=== PATIENT | male | born 1935 | race Caucasian/White ===

== ENCOUNTER 2019-10-06 04:56 | Inpatient (IN) | payer OTHER, MEDICARE ==
[~2019-10-06] VITALS: Ht 185.4 cm; Wt 64.0 kg
--- NOTE | 2019-10-06 05:02 | NUR ---
Patient to ER bed 1 to gown for evaluation. Side rails up.
[2019-10-06 05:03] VITALS: BP_SYST 126
--- NOTE | 2019-10-06 05:04 | NUR ---
ER at bedside examining patient.
--- NOTE | 2019-10-06 05:05 | NUR ---
Pt came in ALS for altered mental status. Per EMS, called 911 for help to get her off the toilet. Pt was on toilet for "7 hours." When EMS got there, they noted he seemed a little altered and called na[facility] [address]. reports that he has seemed a little altered for the past week and that he hasnt really drank/ate much for 7 days. Blood sugar on scene was 225. Patient is A&O x 1. However, pt is slow to respond. No other complaints/injuries noted. Will cont. to monitor.
--- NOTE | 2019-10-06 05:13 | NUR ---
PT went to CT scan via [employer]. Tolerated well. Will cont. to monitor.
--- NOTE | 2019-10-06 05:51 | NUR ---
xray at bedside
--- NOTE | 2019-10-06 05:58 | NUR ---
Bear hugger warming blanket applied on pt. Tolerated well. WIll cont. to monitor.
--- NOTE | 2019-10-06 06:15 | NUR ---
Pt bedside. Pt states that she was in a hurry and went to [facility] by accident and tripped/fell on her way in. Pt family has laceration to chin. She is waiting bedside.
--- NOTE | 2019-10-06 06:27 | NUR ---
Blood for labwork drawn from R forearm. Lactic Acid, Cultures also drawn. Patient tolerated Well.
[2019-10-06 06:35] LABS: BASOPHILS % (AUTO) 0.3 % (0.0-2.0); EOSINOPHILS % (AUTO) 0.1 % (0.0-4.0); HEMATOCRIT 36.3 % (36-54); HEMOGLOBIN 12.6 g/dL (14.0-18.0); LYMPHOCYTES # (AUTO) 0.5 K/uL (1.0-5.5); LYMPHOCYTES % (AUTO) 4.4 % (20.5-51.5); MEAN CORPUSCULAR HEMOGLOBIN 36 pg (27-31); MEAN CORPUSCULAR HGB CONC 35 % (32-36); MEAN CORPUSCULAR VOLUME 103 fL (79.0-98.0); MONOCYTES # (AUTO) 0.4 K/uL (0.0-1.0); MONOCYTES % (AUTO) 3.9 % (1.7-9.3); NEUTROPHILS # (AUTO) 10.2 K/uL (1.8-7.7); NEUTROPHILS % (AUTO) 91.3 % (40.0-70.0); PLATELET COUNT (AUTO) 208 K/uL (130-430); RED BLOOD CELL COUNT(AUTO) 3.51 MIL/uL (4.2-6.2); RED CELL DISTRIBUTION WIDTH 15.1 % (9.0-15.0); WHITE BLOOD COUNT (AUTO) 11.2 K/uL (4.8-10.8)
[2019-10-06 07:09] LABS: ANION GAP 12 (5-15); CALCIUM 10.5 mg/dL (8.4-11.0); CHLORIDE 104 mmol/L (98-107); CREATININE 1.21 mg/dL (0.55-1.30); GLUCOSE 213 mg/dL (70-99); POTASSIUM 3.9 mmol/L (3.5-5.1); SODIUM SERUM 137 mmol/L (136-145); UREA NITROGEN, BLOOD 36 mg/dL (8-21)
[2019-10-06 07:15] LABS: ALANINE AMINOTRANSFERASE 29 U/L (12-78); ALBUMIN 2.5 g/dL (3.4-4.8); ASPARTATE AMINOTRANSFERASE 51 U/L (10-37); TOTAL BILIRUBIN 2.3 mg/dL (0.0-1.0)
--- NOTE | 2019-10-06 07:15 | NUR ---
Report from Servando CONNORS
[2019-10-06 07:16] LABS: INR 1.4 (0.80-1.20); PROTHROMBIN TIME 13.5 SECS (9.5-12.5)
[2019-10-06 07:19] LABS: ACETAMINOPHEN < 1 ug/mL (1-30); ALCOHOL, BLOOD < 3 mg/dL (<10)
--- NOTE | 2019-10-06 07:50 | NUR ---
# 16 FR In and Out catheter with use of sterile technique. Immediate return of 60 ml yellow urine noted. Urine sample collected and sent to lab. Pt tolerated procedure . Patient unable to toilet self.
[2019-10-06] MEDS ORDERED: D5/0.45 NS 1,000 ML IV ONE (08:45)
--- NOTE | 2019-10-06 08:50 | NUR ---
Repeay EKG complete
[2019-10-06 09:04] LABS: BARBITURATE, URINE NEGATIVE (NEG <=200); BENZODIAZEPINE, URINE NEGATIVE (NEG <=150); CANNABINOID, URINE NEGATIVE (NEG <=50); COCAINE, URINE NEGATIVE (NEG <=150); METHAMPHETAMINES SCREEN,URINE NEGATIVE (NEG <=500); OPIATE, URINE NEGATIVE (NEG <=100); PHENCYCLIDINE SCREEN,URINE NEGATIVE (NEG <=25); UR TRICYCLIC ANTIDEPRESSANTS NEGATIVE (NEG <=300); URINE AMPHETAMINE NEGATIVE (NEG <=500); URINE METHADONE NEGATIVE (NEG <=200); URINE OXYCODONE SCREEN NEGATIVE (NEG <=100); URINE PROPOXYPHENE SCREEN NEGATIVE (NEG <=300)
--- NOTE | 2019-10-06 09:22 | NUR ---
Patient will be admitted to care of Dr. Peña . Admitted to med surg unit. Will go to room 104B. Belongings list completed. Complete and up to date summary report printed. SBAR report to be given at bedside with opportunity for questions.
--- NOTE | 2019-10-06 09:35 | NUR ---
ADMISSION NOTE Received patient from ER via gurney. Patient admitted with diagnosis of ALOC. Patient is awake, alert, oriented X 2. Patient oriented to hospital room, call light, toileting, pain management and safety-teach back done. Personal belongings checked and Belongings List documented. Call light within reach.
[2019-10-06 09:45] VITALS: BP_SYST 112
--- NOTE | 2019-10-06 09:52 | NUR ---
CONSULTATION PAGED/CALLED Reason for Consultation: [] ALOC Person Who was Notified: [] MARIA DEL ROSARIO Consulting Physician: [] DR Billie ARMSTRONG Appliance Worker Specialty: [] NEURO Ordering Physician: [] DR Karla PHELPS
--- NOTE | 2019-10-06 10:05 | NUR ---
INITIAL NOTE: RECEIVED PATIENT FROM ER. PATIENT IS AWAKE AND ALERT x2. PATIENT IS CONFUSED. AT BEDSIDE. PATIENT DENIES ANY PAIN AT THE MOMENT. PATIENT IS TOLERATING OXYGEN AT ROOM AIR WITH NO SIGNS OF DISTRESS OR SHORTNESS OF BREATH NOTED. IV SITES ARE INTACT WITH NO SIGNS OF INFILTRATION. PATIENT IN STABLE CONDITION. SAFETY, FALL, AND ASPIRATION PRECAUTIONS ARE IN PLACE. BED LOCKED IN LOWEST POSITION WITH CALL LIGHT IN REACH. WILL CONTINUE TO MONITOR PATIENT FOR ANY CHANGES.
[2019-10-06 11:36] VITALS: BP_SYST 105
--- NOTE | 2019-10-06 12:10 | NUR ---
RN ROUNDS: PATIENT IS ASLEEP IN BED. NO SIGNS OF DISTRESS OR SHORTNESS OF BREATH NOTED. AT BEDSIDE. PATIENT IN STABLE CONDITION. WILL CONTINUE TO MONITOR PATIENT FOR ANY CHANGES.
[2019-10-06] MEDS ORDERED: ASCO500T20 PO (13:30)
[2019-10-06] MEDS ORDERED: RIFA550T5 PO (13:57)
[2019-10-06] MEDS ORDERED: FURO-150 PO (13:57)
[2019-10-06] MEDS ORDERED: MULT-1164 PO (13:57)
[2019-10-06] MEDS ORDERED: FER300L PO (13:57)
[2019-10-06] MEDS ORDERED: DAPA10TA PO (13:57)
[2019-10-06] MEDS ORDERED: INSU200I4 SQ (14:07)
--- NOTE | 2019-10-06 14:10 | NUR ---
RN ROUNDS: PATIENT IS AWAKE AND ALERT x2 LAYING DOWN IN BED. PATIENT DENIES ANY PAIN AT THE MOMENT. AT BEDSIDE. PATIENT IN STABLE CONDITION. WILL CONTINUE TO MONITOR PATIENT FOR ANY CHANGES.
[2019-10-06 15:20] VITALS: BP_SYST 99
--- NOTE | 2019-10-06 16:27 | NUR ---
RN ROUNDS: PATIENT IS ASLEEP IN BED. NO SIGNS OF DISTRESS OR SHORTNESS OF BREATH NOTED. PATIENT IS TOLERATING OXYGEN AT ROOM AIR. PATIENT IN STABLE CONDITION. WILL CONTINUE TO MONITOR PATIENT FOR ANY CHANGES.
[2019-10-06] MEDS ORDERED: D5W 1,000 ML IV PRN (18:04)
[2019-10-06] MEDS ORDERED: HYDROcodone/ACETAMIN 10-325 MG TAB PO PRN (18:15)
[2019-10-06] MEDS ORDERED: ONDANSETRON HCL 4 MG/2 ML VIAL IVP PRN (18:15)
[2019-10-06] MEDS ORDERED: GLUCOSE 15 GM GEL (in 37.5 GM TUBE) PO PRN (18:15)
[2019-10-06] MEDS ORDERED: LORazepam 2 MG/ML VIAL IVP PRN (18:15)
[2019-10-06] MEDS ORDERED: DEXTROSE 50% JECT 50 ML DISP.SYRIN IVP PRN (18:15)
[2019-10-06] MEDS ORDERED: ACETAMINOPHEN 325 MG TABLET PO PRN (18:15)
[2019-10-06] MEDS ORDERED: HYDROcodone/ACETAMIN 5-325 MG TAB (NORCO/ VICODIN) PO PRN (18:15)
--- NOTE | 2019-10-06 18:51 | NUR ---
CLOSING NOTES: PATIENT IS ASLEEP IN BED. PATIENT WAS CHANGED AND CLEANED. PATIENT IS TOLERATING OXYGEN AT ROOM AIR WITH NO SIGNS OF DISTRESS OR SHORTNESS OF BREATH NOTED. IV SITES ARE INTACT WITH NO SIGNS OF INFILTRATION AND RUNNING FLUIDS ORDERED. PATIENT IN STABLE CONDITION. SAFETY, FALL, AND ASPIRATION PRECAUTIONS REMAINED IN PLACE THROUGHOUT THE SHIFT. BED LOCKED IN LOWEST POSITION WITH CALL LIGHT IN REACH. WILL ENDORSE PATIENT CARE TO ONCOMING ROLL PANNER NURSE.
--- NOTE | 2019-10-06 20:00 | NUR ---
pt received in stable condition. pt a+o*4. pt bilat. STANDING ROCK. BSC w Assist vs Incont. bowel+bladder.
[2019-10-06] MEDS: ASCORBIC ACID 500 MG TABLET PO SCH (21:00)
[2019-10-06] MEDS: FUROSEMIDE 20 MG TABLET PO SCH (21:00)
[2019-10-06] MEDS ORDERED: NORMAL SALINE 5 ML DISP.SYRIN IVF SCH (22:00)
--- NOTE | 2019-10-06 22:00 | NUR ---
pt resting quietly in bed. pt has call light in reach. bed in low position. personal belongings w/i reach.
[2019-10-06] MEDS: NORMAL SALINE 5 ML DISP.SYRIN IVF SCH (22:35)
[2019-10-06] MEDS: D5/0.45 NS 1,000 ML IV SCH (22:38)
[2019-10-06] MEDS: INSULIN REGULAR, HUMAN 100 UNITS/ML, 10 ML VIAL (humuLIN R) SUBCUT PRN (22:46)
[2019-10-07] VITALS: BP_SYST 108
--- NOTE | 2019-10-07 00:04 | NUR ---
pt compliant w nursing care. pt remains in stable condition.
--- NOTE | 2019-10-07 02:00 | NUR ---
Pt condition stable. will cont. to monitor for changes in condition.
[2019-10-07 06:36] LABS: BASOPHILS % (AUTO) 0.3 % (0.0-2.0); EOSINOPHILS # (AUTO) 0.2 K/uL (0.0-0.4); EOSINOPHILS % (AUTO) 1.7 % (0.0-4.0); HEMATOCRIT 33.4 % (36-54); HEMOGLOBIN 11.8 g/dL (14.0-18.0); LYMPHOCYTES # (AUTO) 0.5 K/uL (1.0-5.5); LYMPHOCYTES % (AUTO) 5.6 % (20.5-51.5); MEAN CORPUSCULAR HEMOGLOBIN 36 pg (27-31); MEAN CORPUSCULAR HGB CONC 35 % (32-36); MEAN CORPUSCULAR VOLUME 102 fL (79.0-98.0); MONOCYTES # (AUTO) 0.6 K/uL (0.0-1.0); MONOCYTES % (AUTO) 7.2 % (1.7-9.3); NEUTROPHILS # (AUTO) 7.6 K/uL (1.8-7.7); NEUTROPHILS % (AUTO) 85.2 % (40.0-70.0); PLATELET COUNT (AUTO) 190 K/uL (130-430); RED BLOOD CELL COUNT(AUTO) 3.27 MIL/uL (4.2-6.2)
[2019-10-07] MEDS: NORMAL SALINE 5 ML DISP.SYRIN IVF SCH ×3 (06:49→21:13)
[2019-10-07 07:12] LABS: ALANINE AMINOTRANSFERASE 25 U/L (12-78); ALBUMIN 2.1 g/dL (3.4-4.8); ANION GAP 6 (5-15); ASPARTATE AMINOTRANSFERASE 42 U/L (10-37); CHLORIDE 102 mmol/L (98-107); CREATININE 1.14 mg/dL (0.55-1.30); GLUCOSE 275 mg/dL (70-99); POTASSIUM 3.7 mmol/L (3.5-5.1); SODIUM SERUM 132 mmol/L (136-145); UREA NITROGEN, BLOOD 36 mg/dL (8-21)
[2019-10-07] MEDS: INSULIN REGULAR, HUMAN 100 UNITS/ML, 10 ML VIAL (humuLIN R) SUBCUT PRN ×3 (07:19→17:49)
[2019-10-07] MEDS: D5/0.45 NS 1,000 ML IV SCH (07:20)
--- NOTE | 2019-10-07 07:55 | NUR ---
Opening Note Received bedside SBAR report from shift leader RN, patient in bed resting, respirations even and unlabored on room air, IV fluids infusing well, IV site clean, dry and intact, bed in low and locked position with bed alarm on, call light in reach
[2019-10-07 08:00] VITALS: BP_SYST 114
[2019-10-07 08:07] LABS: TOTAL BILIRUBIN 1.1 mg/dL (0.0-1.0)
[2019-10-07] MEDS: FUROSEMIDE 20 MG TABLET PO SCH ×3 (08:47→21:12)
[2019-10-07] MEDS: RIFAXIMIN 550 MG TABLET PO SCH (08:47)
[2019-10-07] MEDS: MULTIVITS,CA,MINERALS/IRON/FA 1 TABLET PO SCH (08:48)
[2019-10-07] MEDS: ASCORBIC ACID 500 MG TABLET PO SCH ×3 (08:48→21:11)
[2019-10-07] MEDS: FERROUS SULFATE 300 MG/5 ML UDC PO SCH (08:48)
[2019-10-07] MEDS ORDERED: NON-FORMULARY MEDICATION (Dapagliflozin Propanediol (Farxiga) 10 MG) PO SCH (09:00)
--- NOTE | 2019-10-07 09:30 | NUR ---
RN Rounds Patient in bed resting, IV sites clean, dry and intact, no acute distress noted
[2019-10-07 11:24] VITALS: BP_SYST 99
--- NOTE | 2019-10-07 11:30 | NUR ---
Spoke with Family Patients at bedside encouraging patient to eat lunch, no acute distress noted
--- NOTE | 2019-10-07 12:36 | NUR ---
Physician Rounds Dr. Abilio Peña at patients bedside examining patient
--- NOTE | 2019-10-07 14:17 | NUR ---
RN Rounds Patient in bed resting, respirations even and unlabored on 2L nasal canula, no acute distress noted, call light in reach Addendum: 10/07/19 at 1426 by Daniel Rios RN Disregard above note, wrong patient
--- NOTE | 2019-10-07 14:36 | NUR ---
RN Rounds Patient in bed resting, respirations even and unlabored on room air, patient denies pain at this time
[2019-10-07 15:34] VITALS: BP_SYST 114
[2019-10-07 15:36] VITALS: BP_SYST 114
--- NOTE | 2019-10-07 16:34 | NUR ---
Physical Therapy Patient up and walking with physical therapist and walker, patient able to ambulate several feet, tolerating well, physical therapist assisted patient back to bed, no acute distress noted
--- NOTE | 2019-10-07 18:10 | NUR ---
RN Rounds Patient in bed resting, respirations even and unlabored on room air, no acute distress noted at this time
--- NOTE | 2019-10-07 19:18 | NUR ---
Closing Note Bedside SBAR report given to police shift commander RN, patient in bed resting, respirations even and unlabored on room air, IV sites clean, dry and intact, bed in low and locked position with bed alarm on, care endorsed to police shift commander RN
--- NOTE | 2019-10-07 20:20 | NUR ---
Start of Shift Note: Report received from Day RN. Pt in bed, appears asleep. IVF infusing well@100ml/hr. Pt respirations regular, even, unlabored. Bed w SR up x2. Bed alarm on, wheels locked.
--- NOTE | 2019-10-07 22:00 | NUR ---
pt refused all meds and fs this pm/hs. pt shook head L<-->R (back and forth) and stated "No" and followed with "Thank You." pt in no apparent distress. will continue to monitor.
[2019-10-08 00:26] VITALS: BP_SYST 107
[2019-10-08] MEDS: NORMAL SALINE 5 ML DISP.SYRIN IVF SCH ×3 (06:00→22:21)
--- NOTE | 2019-10-08 07:10 | NUR ---
Opening Note Received bedside SBAR report from shift stacker RN, respirations even and unlabored on room air, IV sites clean, dry and intact, no acute distress noted, bed in low and locked position with bed alarm on, call light in reach
[2019-10-08 07:44] LABS: BASOPHILS % (AUTO) 0.3 % (0.0-2.0); EOSINOPHILS # (AUTO) 0.2 K/uL (0.0-0.4); EOSINOPHILS % (AUTO) 2.9 % (0.0-4.0); HEMATOCRIT 33.5 % (36-54); HEMOGLOBIN 11.6 g/dL (14.0-18.0); LYMPHOCYTES # (AUTO) 0.8 K/uL (1.0-5.5); LYMPHOCYTES % (AUTO) 11.5 % (20.5-51.5); MEAN CORPUSCULAR HEMOGLOBIN 36 pg (27-31); MEAN CORPUSCULAR HGB CONC 35 % (32-36); MEAN CORPUSCULAR VOLUME 103 fL (79.0-98.0); MONOCYTES # (AUTO) 0.5 K/uL (0.0-1.0); NEUTROPHILS # (AUTO) 5.3 K/uL (1.8-7.7); NEUTROPHILS % (AUTO) 78.3 % (40.0-70.0); PLATELET COUNT (AUTO) 178 K/uL (130-430); RED BLOOD CELL COUNT(AUTO) 3.26 MIL/uL (4.2-6.2); RED CELL DISTRIBUTION WIDTH 15.3 % (9.0-15.0); WHITE BLOOD COUNT (AUTO) 6.8 K/uL (4.8-10.8)
[2019-10-08 07:47] LABS: ANION GAP 6 (5-15); CALCIUM 9.2 mg/dL (8.4-11.0); CHLORIDE 107 mmol/L (98-107); CREATININE 0.95 mg/dL (0.55-1.30); GLUCOSE 161 mg/dL (70-99); POTASSIUM 3.7 mmol/L (3.5-5.1); SODIUM SERUM 139 mmol/L (136-145); UREA NITROGEN, BLOOD 30 mg/dL (8-21)
[2019-10-08 08:00] VITALS: BP_SYST 105
[2019-10-08] MEDS: ASCORBIC ACID 500 MG TABLET PO SCH ×3 (09:00→22:17)
[2019-10-08] MEDS: FERROUS SULFATE 300 MG/5 ML UDC PO SCH ×2 (09:00→09:52)
[2019-10-08] MEDS: MULTIVITS,CA,MINERALS/IRON/FA 1 TABLET PO SCH ×2 (09:00→09:52)
[2019-10-08] MEDS: RIFAXIMIN 550 MG TABLET PO SCH (09:52)
[2019-10-08] MEDS: FUROSEMIDE 20 MG TABLET PO SCH ×2 (09:53→21:00)
--- NOTE | 2019-10-08 09:55 | NUR ---
Medications Patient refusing morning vitamins, patient educated on purpose and use of vitamins
--- NOTE | 2019-10-08 10:54 | NUR ---
Nutrition Update Nestor Scale 12 noted. Pt admitted for ALOC. Diet: [facility] [place] BMI: 18.6 kg/m2 RD to follow per nutrition care standards.
[2019-10-08 11:21] VITALS: BP_SYST 141
[2019-10-08 11:23] VITALS: BP_SYST 110
--- NOTE | 2019-10-08 12:20 | NUR ---
Rn Rounds Patient in bed resting, respirations even and unlabored on room air, no acute distress noted
--- NOTE | 2019-10-08 12:32 | NUR ---
Meal Intake Patient is refusing to eat meals, encouraged and educated patient on importance, will follow up with physician
--- NOTE | 2019-10-08 13:10 | NUR ---
Wound Care Educated patient on purpose and procedure of wound care, wound care performed, patient tolerated well, patient denied and pain before and during wound care. Left hip, wound cleansed with normal saline, pat dry, foam dressing applied, wound bed 95% red with 5% yellow tissue, noted scant drainage with no odor, no necrotic tissue, wound measured 2.5cmX1.3cm, periwound pink.
--- NOTE | 2019-10-08 14:10 | NUR ---
DC PLANNING: RECEIVED A CALL FROM PATIENT'S (JOVANY REGALADO) @ PROVIDED CM LIST OF PREFERRED SNF. 1. [facility] 2. [facility]
--- NOTE | 2019-10-08 14:30 | NUR ---
Rn Rounds Patient in bed resting, respirations even and unlabored on room air, patient denies any pain, no acute distress noted, call light in reach
--- NOTE | 2019-10-08 15:00 | NUR ---
IV Removed RN removed left arm IV catheter, IV catheter intact, no bleeding, patient tolerated well
--- NOTE | 2019-10-08 15:02 | NUR ---
Dietitian Recommendations * Recommend CCHO, 2 gm Na diet w/ Glucerna TID, Neftaly BID (ONS and modular provide 838 kcal/day and 35 gm protein/day) * Encourage increase PO intakes LP, RD Please refer to Nutrition Assessment for details. Addendum: 10/08/19 at [address] Amended: Links added.
[2019-10-08 15:43] VITALS: BP_SYST 96
--- NOTE | 2019-10-08 17:20 | NUR ---
Rn Rounds Patient in bed resting, respirations even and unlabored on room air, no acute distress noted, patient denies any pain at this time, call light in reach
--- NOTE | 2019-10-08 18:53 | NUR ---
Closing Note Bedside SBAR report given to night nurse RN, patient in bed resting, respirations even and unlabored on room air, IV site clean, dry and intact, no acute distress noted, bed in low and locked position with bed alarm on, call light in reach, will continue to monitor, will endorse care to night nurse RN.
[2019-10-08 20:00] VITALS: BP_SYST 94
[2019-10-09 01:16] VITALS: BP_SYST 98
[2019-10-09] MEDS: NORMAL SALINE 5 ML DISP.SYRIN IVF SCH ×2 (06:15→13:50)
[2019-10-09 07:28] LABS: BASOPHILS % (AUTO) 0.6 % (0.0-2.0); EOSINOPHILS # (AUTO) 0.3 K/uL (0.0-0.4); EOSINOPHILS % (AUTO) 3.3 % (0.0-4.0); HEMATOCRIT 35.5 % (36-54); LYMPHOCYTES # (AUTO) 0.8 K/uL (1.0-5.5); LYMPHOCYTES % (AUTO) 10.4 % (20.5-51.5); MEAN CORPUSCULAR HEMOGLOBIN 35 pg (27-31); MEAN CORPUSCULAR HGB CONC 34 % (32-36); MEAN CORPUSCULAR VOLUME 104 fL (79.0-98.0); MONOCYTES # (AUTO) 0.6 K/uL (0.0-1.0); MONOCYTES % (AUTO) 7.6 % (1.7-9.3); NEUTROPHILS % (AUTO) 78.1 % (40.0-70.0); PLATELET COUNT (AUTO) 143 K/uL (130-430); RED BLOOD CELL COUNT(AUTO) 3.42 MIL/uL (4.2-6.2); RED CELL DISTRIBUTION WIDTH 15.5 % (9.0-15.0); WHITE BLOOD COUNT (AUTO) 7.7 K/uL (4.8-10.8)
[2019-10-09 08:00] VITALS: BP_SYST 101
--- NOTE | 2019-10-09 08:00 | NUR ---
Note Pt resting in bed - denies any SOB/resp distress or pain/discomfort noted at this time. IV in right and left wrist intact and patent at this time. Pt has poor appetite at this time. No needs noted at this time. Call light within reach.
[2019-10-09 08:06] LABS: ALANINE AMINOTRANSFERASE 26 U/L (12-78); ANION GAP 4 (5-15); ASPARTATE AMINOTRANSFERASE 39 U/L (10-37); CALCIUM 9.3 mg/dL (8.4-11.0); CHLORIDE 106 mmol/L (98-107); CREATININE 0.93 mg/dL (0.55-1.30); GLUCOSE 126 mg/dL (70-99); POTASSIUM 3.9 mmol/L (3.5-5.1); SODIUM SERUM 136 mmol/L (136-145); TOTAL BILIRUBIN 1.5 mg/dL (0.0-1.0); UREA NITROGEN, BLOOD 33 mg/dL (8-21)
[2019-10-09] MEDS: FERROUS SULFATE 300 MG/5 ML UDC PO SCH (08:49)
[2019-10-09] MEDS: FUROSEMIDE 20 MG TABLET PO SCH (08:49)
[2019-10-09] MEDS: ASCORBIC ACID 500 MG TABLET PO SCH (08:49)
[2019-10-09] MEDS: MULTIVITS,CA,MINERALS/IRON/FA 1 TABLET PO SCH (08:49)
[2019-10-09] MEDS: RIFAXIMIN 550 MG TABLET PO SCH (08:49)
--- NOTE | 2019-10-09 11:00 | NUR ---
Note Pt's came in at 10am and persuaded pt to eat a little of his breakfast. Pt's now gone from bedside - gone home. Pt denies any needs, wants to just rest at this time. Pt's waiting to see where pt will be placed on discharge form the hospital. Call light within reach. Pt next to nurses' station all shift for needs and care.
[2019-10-09 11:23] VITALS: BP_SYST 110
[2019-10-09] MEDS: INSULIN REGULAR, HUMAN 100 UNITS/ML, 10 ML VIAL (humuLIN R) SUBCUT PRN ×2 (12:09→16:52)
--- NOTE | 2019-10-09 14:15 | NUR ---
Note Pt resting in bed, denies any needs at this time. Call light within reach.
--- NOTE | 2019-10-09 14:33 | NUR ---
Note Pt's called and is now speaking to Valerie BLAIR via phone to have questions/concerns answered at this time about possible transfer/discharge from hospital.
--- NOTE | 2019-10-09 15:40 | NUR ---
WOUND EVALUATION: Wound Consult received from Dr. Cristhian Peña. Thank you, Dr. Peña, for the consult. Patient received in a Yfn Bed with a mattress, awake, alert, and oriented. Patient is unable to turn independently. Nestor Score is a 12. Past Medical History: Liver Disease. Admitted with lethargy, confusion, and not eating for a week. Recent Labs: WBC 7.7, RBC 3.42, hemoglobin 12.0, hematocrit 35.5, BUN 33, creatinine 0.93, glucose 126, POC glucose 202, AST 39, ALT 26, serum total protein 6.1, albumin 2.0, PT 13.5, INR 1.4. Microbiology: Blood culture result in progress. Intrinsic factors that delay wound healing: Liver disease, Hypoalbuminemia. Extrinsic factors that delay wound healing: Decreased mobility. Wound Assessment: 1. Left lateral hip: Unstageable pressure ulcer, present on admission. Wound bed is 100% yellow slough. No odor, no drainage. Periwound intact. Surrounding tissue has blanchable red erythema, with purple discoloration present from 72 o'clock. Wound measures 0.5 cm x 1.0 cm. Recommend: Cleanse wound with normal saline. Apply moisture barrier cream to edie-wound. Apply Venelex ointment to wound bed. Cover with foam dressing. Perform wound care daily, and as needed for dressing soiling or dislodgement. 2. Bilateral heels: Blanchable red erythema, present on admission. 3. Right lateral malleolus/foot: Blanchable red erythema, present on admission. Recommend: Offload, elevate and float bilateral heels with one pillow lengthwise under each extremity at all times. Do not allow any portion of heels, ankles or feet to touch bed or other surfaces at any time. Place a pillow in between the knees and ankles, and underneath the extremity that is on the bed when patient is turned. Also recommend: Reposition patient every 2 hours with pillow support and off-load pressure areas with pillows for pressure re-distribution. Do not place patient on either hip. Offload, elevate and float bilateral heels with one pillow lengthwise under each extremity at all times. Place a pillow in between the knees and ankles, and underneath the extremity that is on the bed when patient is turned. Perform skin care and monitor skin integrity Q shift. Use moisture barrier cream on buttocks and other moisture susceptible areas QID and as needed for soiling. Place patient on a low air-loss mattress.
[2019-10-09 15:42] VITALS: BP_SYST 93
--- NOTE | 2019-10-09 15:45 | NUR ---
Note hair spring cutter Rigo at bedside doing assessment of left lateral hip. Wound 0.5X1.0 - 100% red. Surrounding skin purple/red blanchable at this time. No drainage noted a this time. New dressing applied.
[2019-10-09 16:26] VITALS: BP_SYST 110
--- NOTE | 2019-10-09 16:28 | NUR ---
DC Planning: The pt is accepted at [facility] to room 226A per Garry Gaspar . CM LVM to pt's spouse/Lizzette and requested RN Lucia to notify her again before pt transfer out. >> Booked BLS with [facility], molded goods spot picker time at 1830. [place] # [phone].
--- NOTE | 2019-10-09 18:00 | NUR ---
Note Pt's was here at bedside from about 1630 to 1715, then she went home. Pt denies any SOB/resp distress or pain/discomfort at this time. Dr Peña was on the floor and after assessment was completed pt received discharge order to [facility]. Pt's was notified before she left that pt will be going to [facility] at 1830 via ambulance. Pt's stated she will see pt at [facility] around 1999. Pt was dressed in orange gown and sheet for discharge. Belongings of brown slippers and white chapstick in belongings bag at end of bed. Discharge packet ready at nurses' station. Pt stable. Pt was checked on q1' and PRN all shift for needs and care. Report was given to Stella CONNORS at [facility] at 1735. Addendum: 10/09/19 at 1803 by Lucia Mendoza RN Pt's right forearm IV was dc'd - site benign, no bleeding/redness/drainage/tenderness noted at this time.
--- NOTE | 2019-10-09 18:46 | NUR ---
Note EMT on the floor and report given. Pt's discharge packet given to EMT to give staff at [facility] for continuation of care. Pt off the floor via gurney and belongings at this time. Pt stable. No SOB/resp distress or pain/discomfort noted at this time.
[2019-10-09] MEDS ORDERED: BALSAM PERU/CASTOR OIL 60 GM OINT...G. TP ONE (19:00)
[2019-10-10] MEDS ORDERED: BALSAM PERU/CASTOR OIL 60 GM OINT...G. TP SCH (09:00)
== END 2019-10-09 18:46 | DRG 70 ==
LOC: SED 04:56 → SMU 08:33
PROVIDERS: ADMIT Preventive Medicine Preventive Medicine/Occupational Environmental Medicine; ATTEND Preventive Medicine Preventive Medicine/Occupational Environmental Medicine
DX: G93.41 Metabolic encephalopathy (principal); E43 Unspecified severe protein-calorie malnutrition; R65.10 Systemic inflammatory response syndrome (SIRS) of non-infectious origin without acute organ dysfunction; E87.1 Hypo-osmolality and hyponatremia; E87.2 Acidosis; Z68.1 Body mass index [BMI] 19.9 or less, adult; R73.9 Hyperglycemia, unspecified; E88.09 Other disorders of plasma-protein metabolism, not elsewhere classified; D64.9 Anemia, unspecified; Z79.899 Other long term (current) drug therapy; Z88.2 Allergy status to sulfonamides
CPT/HCPCS: 36415; 70450-TC; 71045; 80048; 80053; 80307; 82140-TC; 82550-TC; 82962; 83605; 83880; 84484; 85025; 85610-TC; 85730-TC; 87040-TC; 93005; 95816; 97116-GP; 99285; G0480; G0481; G0482; J1815

== ENCOUNTER 2019-11-07 08:04 | Outpatient (CLI) | payer OTHER, MEDICARE ==
[~2019-11-07 08:04] MED LIST: ASCO500T20 PO; DAPA10TA PO; FER300L PO; FURO-150 PO; INSU200I4 SQ; MULT-1164 PO; RIFA550T5 PO
== END 2019-11-07 08:50 | disposition home or self-care (01) ==
LOC: SDS 08:04 → SRD 08:04 → SMU 08:11 → SDS 08:11 → SRD 08:50 → EDSTATUS 09:00 → SRD 10:19
PROVIDERS: ATTEND Preventive Medicine Preventive Medicine/Occupational Environmental Medicine
DX: R18.8 Other ascites (principal)
CPT/HCPCS: 76857; 94640; 94760